=== PATIENT | female | born 1965 | race Caucasian/White ===

== ENCOUNTER → 2017-05-20 | Outpatient (CLI) | payer BC ==
[~2017-05-20] MED LIST: ROSU20TA PO
[2017-05-20 17:46] LABS: THYROID STIMULATING HORMONE 2.49 uIu/ml (0.300-4.500)
== END | disposition home or self-care (01) ==
LOC: C.LAB1850 16:38
PROVIDERS: ATTEND Internal Medicine Endocrinology, Diabetes & Metabolism
DX: E04.2 Nontoxic multinodular goiter (principal); E03.9 Hypothyroidism, unspecified

== ENCOUNTER → 2017-07-28 | Day surgery (SDC) | payer BC ==
[2017-07-16 12:01] VITALS: BMI 40.0
[~2017-07-28] VITALS: Ht 157.5 cm; Wt 98.6 kg
[~2017-07-28] MED LIST changes: +LEVO112T4 PO; +LIDOCAINE HCL 2% 2 ML VIAL (20MG/ML) ONE; +MIDAZOLAM HCL 1 MG/ML 2ML VIAL ONE; +MULT-506 PO; +ONDANSETRON INJ 2 MG/ML 2 ML VIAL ONE; +PROPOFOL IV EMULSION 10 MG/ML 20 ML VIAL IV ONE; +SODIUM CHLORIDE 0.9% 500ML 500 ML IV ONE
[2017-07-28 12:07] VITALS: Ht 157.5 cm; Wt 98.6 kg
[2017-07-28 12:12] VITALS: TEMP 36.8
--- NOTE | 2017-07-28 13:20 | Endo History and Physical ---
History & Physical Date of Service: Jul 28, 2017. Chief Complaint: SCREENING Referring Physician: DR GONZALEZ History of Present Illness 52 yo CF who presents for screening colonoscopy. Past Surgical History Hx Cardiac Surgery: No Hx Internal Defibrillator: No Hx Pacemaker: No Hx Abdominal Surgery: Yes ([facility] BSO, [facility]) Hx of Implantable Prosthesis: No Hx Post-Op Nausea and Vomiting: No Hx Cancer Surgery: No Hx Thoracic Surgery: No Hx Orthopedic: Yes (LEFT LONG TRIGGER FINGER RELEASE) Hx Urinary Tract Surgery: No Family History None Social History Smoking Status: Former Smoker Hx Substance Use: No Hx Alcohol Use: No Allergies Coded Allergies: Moxifloxacin (Verified Allergy, Severe, THROAT SWELLS, 07/28/17) Current Medications Reported Home Medications Medications Dose Route/Sig Max Daily Dose Days Date Category Levothyroxine Sodium 112 Mcg Tab 1 Tab PO DAILY 30 07/28/17 Reported Multivitamin (Multivitamins) Tab 1 Tab PO DAILY 07/16/17 Reported Crestor (Rosuvastatin Calcium) 20 Mg Tab 20 Mg PO HS 08/14/16 Reported Vital Signs Weight (Kilograms): 98.64 Height (Feet): 5 Height (Inches): 2 Date Time Temp Pulse Resp B/P (MAP) Pulse Ox O2 Delivery O2 Flow Rate FiO2 07/28/17 12:12 36.8 95 20 163/84 (110) 97 Room Air Physical Exam General Appearance: WD/WN, no apparent distress Respiratory/Chest: Auscultation: breath sounds normal Cardiovascular: Heart Auscultation: RRR Abdomen: Bowel Sounds: normal Inspection & Palpation: soft, non-distended, no tenderness, guarding & rebound Assessment and Plan Assessment: 52 yo CF who presents for screening colonoscopy. Plan: Proceed with colonoscopy.
--- NOTE | 2017-07-28 13:50 | GI REPORT ---
Procedure Date: 07/28/2017 1:18 PM Procedure: Colonoscopy Indications: Screening for colorectal malignant neoplasm Medicines: Monitored Anesthesia Care Complications: No immediate complications. Estimated Blood Loss: Estimated blood loss: none. Procedure: Pre-Anesthesia Assessment: - Prior to the procedure, a History and Physical was performed, and patient medications and allergies were reviewed. The patient's tolerance of previous anesthesia was also reviewed. The risks and benefits of the procedure and the sedation options and risks were discussed with the patient. All questions were answered, and informed consent was obtained. Prior Anticoagulants: The patient has taken no previous anticoagulant or antiplatelet agents. ASA Grade Assessment: II - A patient with mild systemic disease. After reviewing the risks and benefits, the patient was deemed in satisfactory condition to undergo the procedure. After I obtained informed consent, the scope was passed under direct vision. Throughout the procedure, the patient's blood pressure, pulse, and oxygen saturations were monitored continuously. The scope was introduced through the anus and advanced to the terminal ileum. The colonoscopy was performed without difficulty. The patient tolerated the procedure well. The quality of the bowel preparation was good. The terminal ileum, ileocecal valve, appendiceal orifice, and rectum were photographed. The terminal ileum, ileocecal valve, appendiceal orifice, and rectum were photographed. Findings: Six sessile polyps were found in the rectum, in the transverse colon and in the ascending colon. The polyps were 4 to 6 mm in size. These polyps were removed with a hot snare. Resection was complete, but the polyp tissue was only partially retrieved. Non-bleeding internal hemorrhoids were found during retroflexion. The hemorrhoids were small. Impression: - Six 4 to 6 mm polyps in the rectum, in the transverse colon and in the ascending colon, removed with a hot snare. Complete resection. Partial retrieval. - Non-bleeding internal hemorrhoids. Recommendation: - Resume previous diet. - Continue present medications. - Repeat colonoscopy for surveillance based on pathology results. - Return to primary care physician as previously scheduled. Daniel Chapman DO 07/28/2017 1:50:21 PM This report has been signed electronically. Note Initiated On: 07/28/2017 1:18 PM I attest to the content of the Intraoperative Record and orders documented therein, exceptions below
--- NOTE | 2017-07-28 14:00 | Discharge Instructions ---
Endoscopy Patient Instructions Date / Procedure(s) Performed Jul 28, 2017. Colonoscopy Allergy Information Coded Allergies: Moxifloxacin (Verified Allergy, Severe, THROAT SWELLS, 07/28/17) Discharge Date / Findings Jul 28, 2017. Colon polyps Internal hemorrhoids Medication Instructions OK to resume all medications today as prescribed Reported Home Medications Medications Dose Route/Sig Max Daily Dose Days Date Category Levothyroxine Sodium 112 Mcg Tab 1 Tab PO DAILY 30 07/28/17 Reported Multivitamin (Multivitamins) Tab 1 Tab PO DAILY 07/16/17 Reported Crestor (Rosuvastatin Calcium) 20 Mg Tab 20 Mg PO HS 08/14/16 Reported Provider Instructions Activity Restrictions - No exercising or heavy lifting for 24 hours. - Do not drink alcohol the day of the procedure. - Do not drive a car or operate machinery until the day after the procedure. - Do not make any important decisions or sign important papers in 24 hours after the procedure. Following Day: - Return to full activity which may include returning to work/school. Diet Start your diet with liquids and light foods (jello, soup, juice, toast). Then eat your usual diet if not nauseated. Treatment For Common After Affects For mild abdominal pain, bloating, or excessive gas: - Rest - Eat lightly - Lie on right side Follow-Up Information Follow-up with DR GONZALEZ as scheduled Anesthesia Information What You Should Know You have had a procedure that required some medicine to reduce anxiety and discomfort. This treatment is called moderate sedation. After receiving the treatment, you may be sleepy, but you will be able to breathe on your own. The effects of the treatment may last for several hours. Follow these instructions along with Activity/Diet recommendations noted above: * Do NOT do anything where dizziness or clumsiness would be dangerous. * Rest quietly at home today, then you can be up and about tomorrow. * Have a responsible person stay with you the rest of today. * You may have had an I.V. today. If so, you may take the dressing off later today. Recommendations Call your doctor if: * Trouble breathing * Continuous vomiting for more than 24 hours * Temperature above 101 degrees * Severe abdominal pain or bloating * Pain not relieved by pain medicine ordered * There is increased drainage or redness from any incision * A large amount of rectal bleeding greater than 2-3 tablespoons. (If you had a polyp/s removed or have hemorrhoids, a small amount of blood - from the rectum is to be expected.) * You have any unanswered questions or concerns. IN THE EVENT OF A SERIOUS EMERGENCY, GO TO THE NEAREST EMERGENCY ROOM Your discharge instructions were prepared by provider Daniel Chapman. Patient Instructions Signature Page Natalie Christian Patient (or Guardian) Signature/Date: I have read and understand the instructions given to me by my caregivers. Caregiver/RN/Doctor Signature/Date: The above-named patient and/or guardian has received patient instructions on this date. + Original Patient Signature Page (only) stays with chart. Please make copy for patient.
[2017-07-28 14:19] VITALS: BP 137/82; PULSE 84; O2SAT 100
--- NOTE | 2017-07-28 14:21 | Anesthesiology Progress Note ---
Anesthesia Post Op Note Date & Time Jul 28, 2017 at 14:21 Vital Signs Pain Intensity: 0 Vital Signs Past 12 Hours Date Time Temp Pulse Resp B/P (MAP) Pulse Ox O2 Delivery O2 Flow Rate FiO2 07/28/17 14:19 84 20 137/82 (100) 100 Room Air 07/28/17 14:06 79 20 122/93 (103) 99 Room Air 07/28/17 13:49 80 16 123/81 (95) 100 Room Air 07/28/17 12:12 36.8 95 20 163/84 (110) 97 Room Air Notes Mental Status: alert / awake / arousable, participated in evaluation Pt Amnestic to Procedure: Yes Nausea / Vomiting: adequately controlled Pain: adequately controlled Airway Patency, RR, SpO2: stable & adequate BP & HR: stable & adequate Hydration State: stable & adequate Anesthetic Complications: no major complications apparent
== END | disposition home or self-care (01) ==
LOC: C.GI 11:50
PROVIDERS: ATTEND Internal Medicine
DX: Z12.11 Encounter for screening for malignant neoplasm of colon (principal); K62.1 Rectal polyp; D12.3 Benign neoplasm of transverse colon; D12.2 Benign neoplasm of ascending colon; K64.8 Other hemorrhoids; Z90.49 Acquired absence of other specified parts of digestive tract; Z98.890 Other specified postprocedural states; Z87.891 Personal history of nicotine dependence

== ENCOUNTER → 2017-08-12 | Outpatient (CLI) | payer BC ==
[~2017-08-12] MED LIST changes: -LIDOCAINE HCL 2% 2 ML VIAL (20MG/ML) ONE; -MIDAZOLAM HCL 1 MG/ML 2ML VIAL ONE; -ONDANSETRON INJ 2 MG/ML 2 ML VIAL ONE; -PROPOFOL IV EMULSION 10 MG/ML 20 ML VIAL IV ONE; -SODIUM CHLORIDE 0.9% 500ML 500 ML IV ONE
[2017-08-12 17:09] LABS: THYROID STIMULATING HORMONE 0.972 uIu/ml (0.300-4.500)
== END | disposition home or self-care (01) ==
LOC: C.LAB1850 15:02
PROVIDERS: ATTEND Internal Medicine Endocrinology, Diabetes & Metabolism
DX: E03.9 Hypothyroidism, unspecified (principal)

== ENCOUNTER → 2017-10-08 | Outpatient (CLI) | payer BC ==
--- NOTE | 2017-10-08 13:55 | DIAGNOSTIC IMAGING REPORT ---
SOFT TISS HEAD/NECK-THYROID CLINICAL HISTORY: 52 years-old Female with E04.2 Multiple thyroid [id number] Subclinical hypothyroidism. COMPARISON: Thyroid ultrasound 05/11/2016 TECHNIQUE: Multiple real time sonographic images of the thyroid were obtained accessing vargas scale appearance and color doppler flow. FINDINGS: MEASUREMENTS: Right lobe: 5.0 x 1.5 x 1.6 cm Left lobe: 4.5 x 1.1 x 1.1 cm Isthmus: 0.2 cm PARENCHYMA: The thyroid parenchymal echotexture is homogeneous. NODULES: Small hyperechoic benign-appearing nodule of the mid pole right thyroid measures 0.1 x 0.3 x 0.2 cm. Within the upper pole of the left thyroid there is an ovoid wider than tall solid isoechoic nodule measuring 0.6 x 0.5 x 0.4 cm which is also low suspicion. Previously noted nodules of the thyroid isthmus measuring up to 4 mm are not identified. The previously noted 0.7 cm nodule of the mid left thyroid is not identified. IMPRESSION: 1. Low suspicion 0.6 cm nodule of the upper pole left thyroid. 2. No suspicious thyroid nodules identified at this time. The above report was generated using voice recognition software. It may contain grammatical, syntax or spelling errors. Electronically signed by: Dickson Crow M.D. 10/08/2017 1:54 PM Dictated Date/Time: 10/08/2017 1:49 PM
== END | disposition home or self-care (01) ==
LOC: C.ULTR 12:52
PROVIDERS: ATTEND Internal Medicine Endocrinology, Diabetes & Metabolism
DX: E04.2 Nontoxic multinodular goiter (principal); E03.9 Hypothyroidism, unspecified